=== PATIENT | female | born 1945 | race Native Hawaiian/Other Pacific Islander ===

== ENCOUNTER 2018-03-31 09:35 | Outpatient (CLI) | payer OTHER | END 2018-03-31 20:31 | disposition home or self-care (01) | LOC: RESP 09:35 | DX: R06.02 Shortness of breath (principal) | CPT/HCPCS: 94640; 94664 ==

== ENCOUNTER 2018-06-03 18:29 | Outpatient (CLI) | payer OTHER | END 2018-06-03 18:44 | disposition short-term general hospital (02) | LOC: AMB 18:29 | DX: R06.09 Other forms of dyspnea (principal) | CPT/HCPCS: A0425; A0427 ==

== ENCOUNTER 2018-06-03 18:45 | Emergency (ER) | payer OTHER ==
[~2018-06-03] VITALS: Ht 152.4 cm; Wt 50.3 kg
[2018-06-03 19:19] LABS: PLATELET COUNT 236 K/uL (152-353)
[2018-06-03 22:29] VITALS: BP 119/63; TEMP 98.2
== END 2018-06-03 22:31 | disposition home or self-care (01) ==
LOC: ED 18:45
DX: R11.2 Nausea with vomiting, unspecified (principal); R68.89 Other general symptoms and signs
CPT/HCPCS: 36415; 80053; 85027; 85379; 93005; 96374; 96376; 99284; J2405

== ENCOUNTER 2018-06-09 08:31 | Outpatient (CLI) | payer OTHER ==
[2018-06-09 09:01] LABS: PLATELET COUNT 295 K/uL (152-353)
[2018-06-09 09:14] LABS: POTASSIUM 4.1 mmol/L (3.6-5.2)
== END 2018-06-09 22:09 | disposition home or self-care (01) ==
LOC: LABW 08:31
PROVIDERS: Internal Medicine
DX: N18.4 Chronic kidney disease, stage 4 (severe) (principal); N30.00 Acute cystitis without hematuria; N20.0 Calculus of kidney; Z79.899 Other long term (current) drug therapy
CPT/HCPCS: 36415; 80053; 81000; 82043; 82306; 82330; 82570; 82607; 83735; 83970; 84100; 84155; 84439; 84443; 84550; 85027; 85651; 86039

== ENCOUNTER 2018-06-18 11:16 | Outpatient (CLI) | payer OTHER | END 2018-06-18 19:53 | disposition home or self-care (01) | LOC: US 11:16 | DX: N18.9 Chronic kidney disease, unspecified (principal) ==

== ENCOUNTER 2018-08-20 12:21 | Emergency (ER) | payer OTHER ==
[~2018-08-20] VITALS: Ht 152.4 cm; Wt 50.3 kg
[2018-08-20 12:34] VITALS: TEMP 97
[2018-08-20 13:40] VITALS: BP 168/98
== END 2018-08-20 13:40 | disposition home or self-care (01) ==
LOC: ED 12:21
PROC: 2W5 Placement, Anatomical Regions, Removal (ICD-10-PCS; principal; 2018-08-20)
DX: T84.69XA Infection and inflammatory reaction due to internal fixation device of other site, initial encounter (principal); M96.89 Other intraoperative and postprocedural complications and disorders of the musculoskeletal system; Z97.8 Presence of other specified devices
CPT/HCPCS: 99283

== ENCOUNTER 2018-10-03 20:54 | Outpatient (CLI) | payer OTHER ==
[2018-10-03] MEDS ORDERED: SODIUM BICARBONATE PO (21:19)
[2018-10-03] MEDS ORDERED: VITAMIN D350000 UNIT PO (21:20)
[2018-10-03] MEDS ORDERED: ESCITALOPRAM20 MG PO (21:21)
[2018-10-03] MEDS ORDERED: PROPRANOLOL40 MG PO (21:21)
[2018-10-03] MEDS ORDERED: LISI10TA11 PO (21:21)
== END 2018-10-03 20:57 | disposition short-term general hospital (02) ==
LOC: AMB 20:54
DX: R10.9 Unspecified abdominal pain (principal); R11.2 Nausea with vomiting, unspecified
CPT/HCPCS: A0425; A0427

== ENCOUNTER 2018-10-03 21:18 | Emergency (ER) | payer OTHER ==
[~2018-10-03] VITALS: Ht 152.4 cm; Wt 45.4 kg
[2018-10-03] MEDS ORDERED: SODIUM BICARBONATE PO (21:19)
[2018-10-03] MEDS ORDERED: VITAMIN D350000 UNIT PO (21:20)
[2018-10-03] MEDS ORDERED: LISI10TA11 PO (21:21)
[2018-10-03] MEDS ORDERED: ESCITALOPRAM20 MG PO (21:21)
[2018-10-03] MEDS ORDERED: PROPRANOLOL40 MG PO (21:21)
[2018-10-03 23:30] VITALS: BP 160/90; TEMP 97.3
== END 2018-10-03 23:40 | disposition home or self-care (01) ==
LOC: ED 21:18
DX: K29.60 Other gastritis without bleeding (principal); F41.8 Other specified anxiety disorders
CPT/HCPCS: 96374; 96375; 99284; J2060; J2405; J3490

== ENCOUNTER 2019-02-22 09:09 | Outpatient (CLI) | payer OTHER ==
[~2019-02-22 09:09] MED LIST: ESCITALOPRAM20 MG PO; LISI10TA11 PO; PROPRANOLOL40 MG PO; SODIUM BICARBONATE PO; VITAMIN D350000 UNIT PO
[2019-02-22 09:28] LABS: PLATELET COUNT 355 K/uL (152-353)
[2019-02-22 09:36] LABS: POTASSIUM 4.5 mmol/L (3.6-5.2)
== END 2019-02-22 22:45 | disposition home or self-care (01) ==
LOC: LABW 09:09
PROVIDERS: Internal Medicine
DX: N18.4 Chronic kidney disease, stage 4 (severe) (principal)
CPT/HCPCS: 36415; 80053; 82306; 83735; 83970; 84100; 85027

== ENCOUNTER 2019-03-02 08:45 | Outpatient (CLI) | payer OTHER | END 2019-03-02 20:09 | disposition home or self-care (01) | LOC: CT 08:45 | DX: R91.8 Other nonspecific abnormal finding of lung field (principal) ==

== ENCOUNTER 2019-05-19 08:45 | Outpatient (CLI) | payer OTHER ==
[2019-05-19 09:03] LABS: PLATELET COUNT 308 K/uL (152-353)
[2019-05-19 09:16] LABS: POTASSIUM 4.5 mmol/L (3.6-5.2)
== END 2019-05-19 23:44 | disposition home or self-care (01) ==
LOC: LABW 08:45
PROVIDERS: Internal Medicine
DX: N18.4 Chronic kidney disease, stage 4 (severe) (principal)
CPT/HCPCS: 36415; 80053; 85027

== ENCOUNTER 2019-05-25 07:39 | Outpatient (CLI) | payer OTHER | END 2019-05-25 23:39 | disposition home or self-care (01) | LOC: CT 07:39 | DX: N20.0 Calculus of kidney (principal) ==

== ENCOUNTER 2019-07-12 09:43 | Outpatient (CLI) | payer OTHER | END 2019-07-12 22:52 | disposition home or self-care (01) | LOC: CT 09:43 | DX: R91.8 Other nonspecific abnormal finding of lung field (principal) ==

== ENCOUNTER 2019-07-31 17:14 | Emergency (ER) | payer OTHER ==
[~2019-07-31] VITALS: Ht 152.4 cm; Wt 50.3 kg
[2019-07-31 17:21] VITALS: TEMP 98.1
[2019-07-31 18:21] LABS: PLATELET COUNT 294 K/uL (152-353)
[2019-07-31 19:02] VITALS: BP 177/89
== END 2019-07-31 19:02 | disposition home or self-care (01) ==
LOC: ED 17:14
PROVIDERS: Hospitalist
DX: L03.116 Cellulitis of left lower limb (principal); S80.862A Insect bite (nonvenomous), left lower leg, initial encounter; W57.XXXA Bitten or stung by nonvenomous insect and other nonvenomous arthropods, initial encounter; Y92.89 Other specified places as the place of occurrence of the external cause
CPT/HCPCS: 80048; 85027; 87040; 96372; 99283; J0696; J1885

== ENCOUNTER 2019-08-03 07:55 | Outpatient (CLI) | payer OTHER ==
[2019-08-03 08:49] LABS: POTASSIUM 4.4 mmol/L (3.6-5.2)
[2019-08-03 08:51] LABS: PLATELET COUNT 277 K/uL (152-353)
== END 2019-08-03 20:14 | disposition home or self-care (01) ==
LOC: LABW 07:55
PROVIDERS: Internal Medicine
DX: N18.3 Chronic kidney disease, stage 3 (moderate) (principal); M25.551 Pain in right hip
CPT/HCPCS: 36415; 80053; 81000; 82330; 82570; 83735; 84100; 84155; 85027

== ENCOUNTER 2019-08-31 10:01 | Outpatient (CLI) | payer OTHER | END 2019-08-31 23:28 | disposition home or self-care (01) | LOC: MRI 10:01 | DX: R42 Dizziness and giddiness (principal) ==

== ENCOUNTER 2019-09-21 12:45 | Emergency (ER) | payer OTHER ==
[~2019-09-21] VITALS: Ht 152.4 cm; Wt 50.3 kg
[2019-09-21 13:00] VITALS: TEMP 97.3
[2019-09-21 14:00] VITALS: BP 142/82
== END 2019-09-21 14:00 | disposition home or self-care (01) ==
LOC: ED 12:45
DX: S46.091A Other injury of muscle(s) and tendon(s) of the rotator cuff of right shoulder, initial encounter (principal); W50.0XXA Accidental hit or strike by another person, initial encounter; Y92.89 Other specified places as the place of occurrence of the external cause
CPT/HCPCS: 96372; 99283; J1885

== ENCOUNTER 2019-09-29 09:57 | Outpatient (CLI) | payer OTHER | END 2019-09-29 19:12 | disposition home or self-care (01) | LOC: MRI 09:57 | DX: M54.2 Cervicalgia (principal); M25.511 Pain in right shoulder; M19.011 Primary osteoarthritis, right shoulder; M75.41 Impingement syndrome of right shoulder; M75.101 Unspecified rotator cuff tear or rupture of right shoulder, not specified as traumatic ==

== ENCOUNTER 2019-10-09 07:54 | Emergency (ER) | payer OTHER ==
[~2019-10-09] VITALS: Ht 154.9 cm; Wt 49.0 kg
[2019-10-09 08:03] VITALS: TEMP 97.9
[2019-10-09 08:45] LABS: PLATELET COUNT 276 K/uL (152-353); POTASSIUM 4.4 mmol/L (3.6-5.2); SODIUM 138 mmol/L (136-145)
[2019-10-09 08:54] LABS: PARTIAL THROMBOPLASTIN TIME 20.1 SECONDS (24.5-33.6)
[2019-10-09 09:15] VITALS: BP 148/85
== END 2019-10-09 09:20 | disposition home or self-care (01) ==
LOC: ED 07:54
PROVIDERS: Hospitalist
DX: R07.89 Other chest pain (principal); R06.02 Shortness of breath
CPT/HCPCS: 36415; 80053; 82550; 83880; 84484; 85027; 85379; 85610; 85730; 93005; 96374; 99284; J2405

== ENCOUNTER 2019-11-14 12:52 | Outpatient (CLI) | payer OTHER | END 2019-11-14 12:54 | disposition short-term general hospital (02) | LOC: AMB 12:52 | DX: R53.1 Weakness (principal) | CPT/HCPCS: A0425; A0429 ==

== ENCOUNTER 2019-11-14 13:18 | Emergency (ER) | payer OTHER ==
[~2019-11-14] VITALS: Ht 154.9 cm; Wt 48.5 kg
[2019-11-14 13:30] VITALS: TEMP 97.5
[2019-11-14 14:30] VITALS: BP 140/87
== END 2019-11-14 15:08 | disposition home or self-care (01) ==
LOC: ED 13:18
DX: R00.2 Palpitations (principal)
CPT/HCPCS: 93005; 99283

== ENCOUNTER 2019-11-25 12:46 | Outpatient (CLI) | payer OTHER | END 2019-11-25 19:54 | disposition home or self-care (01) | LOC: RAD 12:46 | DX: R63.4 Abnormal weight loss (principal) ==

== ENCOUNTER 2020-07-27 08:50 | Outpatient (CLI) | payer OTHER | END 2020-07-27 23:25 | disposition home or self-care (01) | LOC: CT 08:50 | DX: R91.8 Other nonspecific abnormal finding of lung field (principal) ==